=== PATIENT | male | born 1995 | race Two or more races ===

== ENCOUNTER 2019-02-05 02:15 | Emergency (ER) | payer OTHER ==
[~2019-02-05] VITALS: Ht 172.7 cm; Wt 95.3 kg
[2019-02-05] MEDS ORDERED: CEphaleXIN 500 MG CAPSULE PO ONE (02:30)
[2019-02-05] MEDS ORDERED: SODIUM BICARBONATE 4.2 % (NEUT) 5 ML VIAL TP ONE (02:30)
[2019-02-05] MEDS ORDERED: LIDOCAINE HCL 2% 20 ML VIAL TP ONE (02:30)
[2019-02-05] MEDS ORDERED: CEphaleXIN 500 MG CAPSULE ONE (02:43)
[2019-02-05 03:20] VITALS: BP 112/74
--- NOTE | 2019-02-05 03:21 | NUR ---
D/c to home after placing 2x2 and bandaid to suture area. Given Keflex Rx. Advised to f/u here for wound care in 2 days and suture removal 7-10day advised to follow up [facility]astic Md for appointment.
== END 2019-02-05 03:32 | disposition home or self-care (01) ==
LOC: ER 02:24
DX: S61.211A Laceration without foreign body of left index finger without damage to nail, initial encounter (principal); W26.8XXA Contact with other sharp object(s), not elsewhere classified, initial encounter; Y93.89 Activity, other specified; Y92.89 Other specified places as the place of occurrence of the external cause; Y99.0 Civilian activity done for income or pay
CPT/HCPCS: 12001; 73140; 99283; J3490 ×2; A4217; A4663

== ENCOUNTER 2019-02-12 12:32 | Emergency (ER) | payer OTHER ==
[~2019-02-12] VITALS: Ht 172.7 cm; Wt 95.3 kg
[2019-02-12 13:09] VITALS: BP 112/70
--- NOTE | 2019-02-12 13:21 | NUR ---
PT WAS EVALUATED BY DR ROQUE. PT WAS D/C'd TO HOME. D/C INSTRUCTIONS GIVEN TO THE PT.
== END 2019-02-12 13:15 | disposition home or self-care (01) ==
LOC: ER 12:32
DX: S61.211D Laceration without foreign body of left index finger without damage to nail, subsequent encounter (principal); X58.XXXD Exposure to other specified factors, subsequent encounter
CPT/HCPCS: A4663

== ENCOUNTER 2022-02-22 22:49 | Emergency (ER) | payer OTHER ==
[~2022-02-22] VITALS: Ht 172.7 cm; Wt 104.3 kg
--- NOTE | 2022-02-22 23:05 | NUR ---
Dr. Spears at bedside for MSE.
--- NOTE | 2022-02-22 23:59 | NUR ---
Xray at bedside.
--- NOTE | 2022-02-22 23:59 | NUR ---
Reid lemons in ED - 02/22/22 at [id number] by ADRIEN Xray at bedside for MSE.
[2022-02-23 00:25] LABS: *MONOTEST NEGATIVE (NEGATIVE)
[2022-02-23 00:39] VITALS: BP 118/80
--- NOTE | 2022-02-23 00:39 | NUR ---
Patient discharged to home in stable condition. Written and verbal after care instructions given. Patient verbalizes understanding of instructions. Stressed follow up or return to ER for worsening s/s. Patient out of ER with steady gait, no acute signs of distress, VSS, all belongings taken, provided with copies of lab results.
== END 2022-02-23 00:40 | disposition home or self-care (01) ==
LOC: ER 22:51
DX: J02.9 Acute pharyngitis, unspecified (principal); G89.29 Other chronic pain; M79.672 Pain in left foot; Z20.822 Contact with and (suspected) exposure to COVID-19
CPT/HCPCS: 36415; 73630; 86308; 86403; A4663